=== PATIENT | female | born 1970 | race Hispanic/Latino ===

== ENCOUNTER 2018-05-08 07:08 | Outpatient (CLI) | payer BC | END 2018-05-08 07:09 | disposition home or self-care (01) | LOC: CARDIO 07:08 | DX: R00.2 Palpitations (principal); I10 Essential (primary) hypertension; I11.9 Hypertensive heart disease without heart failure; I27.20 Pulmonary hypertension, unspecified; I34.1 Nonrheumatic mitral (valve) prolapse ==

== ENCOUNTER → 2018-05-17 | Day surgery (SDC) | payer BC ==
[2018-05-15 11:03] VITALS: BMI 27.0
[~2018-05-17] MED LIST: Iodixanol 320 MG/ML 100 ML BOTTLE IV ONE; Iodixanol 320 MG/ML 200 ML BOTTLE IV ONE; Iohexol 350mgl/ml 50 ML ONE; Lidocaine PF 2% (5 ml) Inj (For Cardiac Arrhy) ONE; Midazolam 2 MG/2 ML VIAL ONE; Nitroglycerin 50mg in D5W 0 MG/0 ML BOTTLE IV ONE; Phenylephrine 10 mg/ml Inj ONE; Sodium Chloride 0.9% 1,000 ML IV SCH
[2018-05-17 07:12] LABS: BASO # 0.02 K/mm3 (0.0-2.0); BASO % 0.3 % (0.0-3.0); EOS # 0.1 (0.0-0.7); EOS % 2.2 % (1.5-5.0); HEMOGLOBIN 13.9 g/dL (12.0-16.0); LYMPH # 1.6 (1.2-3.4); LYMPH % 25.3 % (22.0-35.0); MEAN CELL VOLUME 91.3 fl (80.0-105.0); MEAN CORPUSCULAR HEMOGLOBIN 30.2 pg (25.0-35.0); MEAN PLATELET VOLUME 9.5 fl (7.0-11.0); MONO # 0.5 (0.1-0.6); RBC 4.61 10^6/uL (3.5-6.1); RED CELL DISTRIBUTION WIDTH 12.6 % (11.5-14.5); WHITE BLOOD COUNT 6.5 10^3/uL (4.5-11.0)
[2018-05-17 07:20] LABS: BLOOD UREA NITROGEN 15 mg/dL (7-21); CALCIUM 9.4 mg/dL (8.4-10.5); GFR NON-AFRICAN AMERICAN > 60
[2018-05-17 07:24] LABS: INR 1.02; PARTIAL THROMBOPLASTIN TIME 32.4 Seconds (26.9-38.3); PROTHROMBIN TIME 11.5 SECONDS (9.4-12.5)
[2018-05-17 09:29] VITALS: RESP 20; TEMP 97.7
[2018-05-17 11:03] VITALS: O2SAT 98
--- NOTE | 2018-05-17 14:01 | CARDCATH ---
PROCEDURE DATE: 05/17/2018 PROCEDURE: Left heart catheterization with coronary arteriography and left ventriculogram with supra-aortic valvular injection. The right femoral artery was cannulated with a 6-[place] sheath. There were no complications. I performed moderate sedation which included the presence of an independent trained observer that assisted in monitoring the patient's level of consciousness and physiologic status. After administration of Versed and fentanyl, my intra service time was 30 minutes. The patient's noninvasive testing revealed severe aortic insufficiency with a bicuspid valve noted. The findings on catheterization revealed a left ventricle that contracted normally. Estimated ejection fraction of 70%. Supra-aortic valvular injection revealed marked dilated ascending aorta with distortion of its geometry with three to four plus aortic insufficiency. Her coronary anatomy revealed a left dominant circulation. The coronary arteries were all within normal limits. Angio-Seal was used to close the femoral artery site. The patient tolerated the procedure well. In summary, the procedure revealed severe aortic insufficiency. Markedly dilated descending aorta with distortion of her anatomy. Normal left ventricular function. Normal coronary arteries. Given these findings, the patient is being referred to [facility], where she will undergo a TIANNA with the likelihood of needing aortic valve replacement. Dylon Parikh MD
[2018-05-17 14:38] VITALS: BP 120/78; PULSE 76
== END | disposition home or self-care (01) ==
LOC: SDSVAS 06:15 → CATH 06:15
PROVIDERS: ATTEND Internal Medicine Cardiovascular Disease
DX: I35.1 Nonrheumatic aortic (valve) insufficiency (principal)
CPT/HCPCS: 36415; 80048; 84703; 85025; 85610; 85730; 86850; 86900; 93458; 93567; 99152; C1760; C1769; C2629; J1644; J2250; J2405; J3010; J7030; J7040; Q9966; Q9967